=== PATIENT | female | born 1955 | race Caucasian/White ===

== ENCOUNTER 2021-05-03 11:42 | Inpatient (IN) ==
[2021-05-03] MEDS: Lactated Ringers 1000 ml BAG 1,000 ML IV SCH ×2 (12:24→14:26)
[2021-05-03 12:33] LABS: ABS Basophils 0.1 10^3/ul (0-0.2); ABS Eosinophils 0.1 10^3/ul (0-0.6); ABS Monocytes 0.5 10^3/ul (0-0.8); ABS Neutrophils 6.4 10^3/ul (1.5-7.7); Eosinophil % 1.6 %; Hematocrit 39 % (35-47); Lymphocyte % 21.7 %; Mean Corpuscular HGB Conc 34 g/dL (31-36); Mean Corpuscular Hemoglobin 28 pg (27-31); Mean Corpuscular Volume 83 fL (80-97); Platelet Count 239 10^3/uL (150-450); Red Blood Count 4.65 10^6 /uL (3.70-4.87); Red Cell Distribution Width 15 % (10-15)
[2021-05-03 12:55] LABS: Activated Partial Thrombo Time 33.1 seconds (26.0-38.0); INR 1.08 (0.86-1.15)
[2021-05-03] MEDS ORDERED: Lactated Ringers 1000 ml BAG 1,000 ML IV ONE (13:00)
[2021-05-03 13:13] LABS: Albumin 4.2 g/dL (3.2-5.2); Albumin/Globulin Ratio 1.4 (1-3); Calcium 9.3 mg/dL (8.6-10.3); Globulin 3.1 g/dL (2-4); Potassium 4.4 mmol/L (3.5-5.0); Total Bilirubin 0.4 mg/dL (0.2-1.0); Total Protein 7.3 g/dL (6.4-8.9); eGFR CKD-EPI 68.6 (>60)
[2021-05-03 13:51] LABS: C Reactive Protein 2.01 mg/L (<8.01)
[2021-05-03] MEDS ORDERED: Ondansetron 4 mg VIAL 2 MG/ML 2 ml VIAL IV ONE (14:40)
[2021-05-03 15:19] LABS: Hematocrit 35 % (35-47); Hemoglobin 11.9 g/dL (12.0-16.0); Mean Corpuscular HGB Conc 34 g/dL (31-36); Mean Corpuscular Hemoglobin 29 pg (27-31); Mean Corpuscular Volume 84 fL (80-97); Mean Platelet Volume 8.2 fL (7.4-10.4); Platelet Count 281 10^3/uL (150-450); Red Cell Distribution Width 14 % (10-15); White Blood Count 10.8 10^3/uL (3.5-10.8)
[2021-05-03 15:20] LABS: Erythrocyte Sed Rate 24 mm/Hr (0-29)
[2021-05-03] MEDS ORDERED: Ondansetron 4 mg VIAL 2 MG/ML 2 ml VIAL IV PRN (17:25)
[2021-05-03] MEDS ORDERED: PEG 3000 GI LAVAGE 1 GALLON PO ONE (17:25)
[2021-05-03] MEDS ORDERED: NS 0.9% 1000 ml BAG 1,000 ML IV SCH (17:30)
[2021-05-03 22:10] LABS: Hematocrit 32 % (35-47); Hemoglobin 10.8 g/dL (12.0-16.0)
[2021-05-03 23:50] LABS: Hematocrit 34 % (35-47); Hemoglobin 11.1 g/dL (12.0-16.0)
[2021-05-04 05:59] LABS: Hematocrit 28 % (35-47); Hemoglobin 9.5 g/dL (12.0-16.0); Mean Corpuscular HGB Conc 34 g/dL (31-36); Mean Corpuscular Hemoglobin 29 pg (27-31); Mean Corpuscular Volume 84 fL (80-97); Mean Platelet Volume 8.2 fL (7.4-10.4); Platelet Count 190 10^3/uL (150-450); Red Blood Count 3.32 10^6 /uL (3.70-4.87); Red Cell Distribution Width 14 % (10-15); White Blood Count 8.6 10^3/uL (3.5-10.8)
[2021-05-04] MEDS ORDERED: PEG 3000 GI LAVAGE 1 GALLON PO ONE (06:00)
[2021-05-04 06:25] LABS: Calcium 8.6 mg/dL (8.6-10.3); Potassium 3.9 mmol/L (3.5-5.0); eGFR CKD-EPI 72.4 (>60)
[2021-05-04 14:09] LABS: Hematocrit 30 % (35-47)
[2021-05-04 15:00] VITALS: BP 135/66
[2021-05-04] MEDS ORDERED: Midazolam 10 mg/10 ml VIAL 1 mg/ml 10 ml VIAL (10 mg) ONE (15:22)
[2021-05-04] MEDS ORDERED: fentaNYL 100 mcg/2 ml 50 MCG/ML VIAL ONE (15:22)
== END 2021-05-04 18:40 | disposition home or self-care (01) | DRG 379 ==
LOC: ED 11:42 → EDHOLD 17:48 → MEDTELE 20:41
PROVIDERS: ADMIT Hospitalist; ATTEND Hospitalist